=== PATIENT | male | born 1995 | race Caucasian/White ===

== ENCOUNTER 2021-12-22 14:15 | Emergency (ER) | payer SELFPAY ==
[~2021-12-22] VITALS: Ht 175.3 cm; Wt 100.0 kg
[2021-12-22 14:41] VITALS: BP 140/78
[2021-12-22] MEDS ORDERED: BO1 TP (15:32)
[2021-12-22] MEDS ORDERED: CLIN300C12 MT (15:32)
== END 2021-12-22 15:37 | disposition home or self-care (01) ==
LOC: ER 14:15
DX: L03.116 Cellulitis of left lower limb (principal)
CPT/HCPCS: 99283

== ENCOUNTER 2022-05-24 11:51 | Inpatient (IN) | payer SELFPAY ==
[~2022-05-24] VITALS: Ht 175.3 cm; Wt 109.8 kg
[~2022-05-24 11:51] MED LIST: BO1 TP; CLIN-194 MT
[2022-05-24] MEDS ORDERED: MORPHINE SULFATE 4 MG/ML CPJ (NOT FOR IM USE) IV STA (12:28)
[2022-05-24] MEDS ORDERED: ONDANSETRON HCL 4MG/2ML INJ IV STA (12:28)
[2022-05-24] MEDS ORDERED: SODIUM CHLORIDE 0.9% 1000ML BAG (SEPSIS BOLUS) IV ONE (12:30)
[2022-05-24] MEDS ORDERED: ACETAMINOPHEN 500MG TABLET PO ONE (12:30)
[2022-05-24] MEDS ORDERED: VANCOMYCIN 1G PREMIX 200 ML IV ONE (12:30)
[2022-05-24] MEDS ORDERED: CEFTRIAXONE 1 G PREMIX 50 ML IV ONE (12:30)
[2022-05-24 13:34] LABS: HEMATOCRIT. 47.6 % (42.0-52.0); HEMOGLOBIN. 16.5 g/dL (14.0-18.0); MEAN CORPUSCULAR HEMOGLOBIN 32.1 pg (28.0-32.0); MEAN CORPUSCULAR VOLUME 92.6 fL (80.0-94.0); MEAN PLATELET VOLUME 9.3 fl (7.4-10.4); PLATELET 240 x1000/uL (130-400); RED BLOOD CELL COUNT 5.13 mill/uL (4.7-6.1); RED CELL DISTRIBUTION WIDTH 12.3 % (11.6-14.6)
[2022-05-24 13:43] LABS: CHLORIDE 101 mEq/L (98-107)
[2022-05-24 13:54] LABS: PROTHROMBIN TIME 10.3 sec (9.6-11.0)
[2022-05-24 13:59] LABS: PLATELET ESTIMATE NORMAL
[2022-05-24] MEDS ORDERED: MIDAZOLAM HCL 2 MG/2 ML VIAL IV ONE (14:00)
[2022-05-24] MEDS ORDERED: VANCOMYCIN 1,000 MG in DEXT 5% WATER 250 ML IV NR (14:15)
[2022-05-24] MEDS ORDERED: MIDAZOLAM HCL 2 MG/2 ML VIAL IV NR (14:15)
[2022-05-24] MEDS ORDERED: VANCOMYCIN 1GM PMX (XELLIA) 200 ML IV NR (17:32)
[2022-05-24 17:55] LABS: *AMPHETAMINES SCREEN URINE PRESUMTIVE POSITIVE (NEGATIVE); *BARBITURATES SCREEN URINE NEGATIVE (NEGATIVE); *BENZODIAZEPINES SCREEN URINE PRESUMTIVE POSITIVE (NEGATIVE); *COCAINE SCREEN URINE NEGATIVE (NEGATIVE); CANNABINOID URINE SCREEN PRESUMTIVE POSITIVE (NEGATIVE); METHADONE URINE SCREEN NEGATIVE (NEGATIVE); OPIATES URINE SCREEN PRESUMTIVE POSITIVE (NEGATIVE); PHENCYCLIDINE URINE SCREEN NEGATIVE (NEGATIVE)
[2022-05-24] MEDS ORDERED: ACETAMINOPHEN 325MG TABLET PO ONE (22:45)
[2022-05-25] MEDS ORDERED: GUAIFENESIN 200MG/10ML SUGAR FREE UDC PO PRN (09:30)
[2022-05-25] MEDS ORDERED: DOCUSATE SODIUM 100MG CAPSULE PO PRN (09:30)
[2022-05-25] MEDS ORDERED: CLONIDINE 0.1MG TABLET PO PRN (09:30)
[2022-05-25] MEDS ORDERED: ACETAMINOPHEN 325MG TABLET PO PRN (09:30)
[2022-05-25] MEDS ORDERED: MAGNESIUM/ALUMINUM HYDROXIDE/SIMETHICONE 30ML UDC PO PRN (09:30)
[2022-05-25] MEDS ORDERED: ENOXAPARIN 40MG/0.4ML SYR SUBCUT SCH (09:30)
[2022-05-25] MEDS ORDERED: DIPHENHYDRAMINE 50MG/ML VIAL IV PRN (09:30)
[2022-05-25] MEDS ORDERED: IPRATROPIUM/ALBUTEROL 0.5-3(2.5)MG/3ML NEB HHN PRN (09:30)
[2022-05-25] MEDS ORDERED: ONDANSETRON HCL 4MG/2ML INJ IV PRN (09:30)
[2022-05-25] MEDS ORDERED: HYDRALAZINE 20MG/ML VIAL IV PRN (09:30)
[2022-05-25] MEDS ORDERED: HYDRALAZINE 10 MG in SODIUM CHLORIDE 0.9% 49.5 ML IV PRN (09:45)
[2022-05-25] MEDS ORDERED: NALOXONE HCL 0.4MG/ML VIAL IV PRN (09:45)
[2022-05-25] MEDS ORDERED: PIPERACILLIN/TAZ 3.375G PREMIX 50 ML IV SCH (10:00)
[2022-05-25] MEDS: ENOXAPARIN 30MG/0.3ML SYR SUBCUT SCH ×2 (10:26→20:55)
[2022-05-25] MEDS: SODIUM CHLORIDE 0.45% 1,000 ML IV SCH (10:28)
[2022-05-25] MEDS: HYDROCODONE/ACETAMINOPHEN 5/325MG TABLET PO PRN (10:32)
[2022-05-25] MEDS: PIPERACILLIN/TAZOBACTAM 3.375G in DEXT 5% WATER 50ML IV SCH ×3 (11:01→20:54)
[2022-05-25] MEDS: SODIUM CHLORIDE 0.9% INJ 3ML FLUSH IVF SCH ×2 (14:20→22:00)
[2022-05-25 18:38] VITALS: BP 147/85
[2022-05-25 20:31] VITALS: BP 145/70
[2022-05-26 01:01] VITALS: BP 143/89
[2022-05-26] MEDS: HYDROCODONE/ACETAMINOPHEN 5/325MG TABLET PO PRN ×2 (02:33→23:15)
[2022-05-26 04:49] VITALS: BP 142/70
[2022-05-26] MEDS: SODIUM CHLORIDE 0.45% 1,000 ML IV SCH ×2 (05:00→20:05)
[2022-05-26] MEDS: PIPERACILLIN/TAZOBACTAM 3.375G in DEXT 5% WATER 50ML IV SCH ×2 (05:55→14:05)
[2022-05-26] MEDS: SODIUM CHLORIDE 0.9% INJ 3ML FLUSH IVF SCH ×3 (05:56→22:00)
[2022-05-26 08:00] VITALS: BP 153/75
[2022-05-26 08:19] LABS: BASOPHILS % 0.2 % (0.0-2.0); EOSINOPHILS % 0.1 % (0.0-5.0); HEMATOCRIT. 48.1 % (42.0-52.0); HEMOGLOBIN. 16.6 g/dL (14.0-18.0); LYMPHOCYTES % 8.7 % (20.0-50.0); MEAN CORPUSCULAR HEMOGLOBIN 32.2 pg (28.0-32.0); MEAN PLATELET VOLUME 9.7 fl (7.4-10.4); MONOCYTES % 7.8 % (2.0-8.0); NEUTROPHILS % 83.2 % (40.0-76.0); PLATELET 225 x1000/uL (130-400); RED BLOOD CELL COUNT 5.17 mill/uL (4.7-6.1); RED CELL DISTRIBUTION WIDTH 12.4 % (11.6-14.6)
[2022-05-26 08:35] LABS: CHLORIDE 102 mEq/L (98-107)
[2022-05-26] MEDS: ENOXAPARIN 30MG/0.3ML SYR SUBCUT SCH ×2 (09:00→23:01)
[2022-05-26 12:00] VITALS: BP 150/98
[2022-05-26 16:00] VITALS: BP 154/78
[2022-05-26] MEDS ORDERED: VANCOMYCIN 1500MG in DEXTROSE 5% WATER 250ML IV SCH (18:00)
[2022-05-26] MEDS: CEFTRIAXONE 2 G in DEXTROSE 5% WATER 50 ML IV SCH (18:06)
[2022-05-26] MEDS: CLINDAMYCIN 600 MG PREMIX 50 ML IV SCH ×2 (19:01→23:01)
[2022-05-26 20:00] VITALS: BP 151/75
[2022-05-27] VITALS: BP 115/65
[2022-05-27] MEDS: VANCOMYCIN 1250MG in DEXTROSE 5% WATER 250ML IV SCH ×3 (02:00→13:39)
[2022-05-27 04:00] VITALS: BP 130/77
[2022-05-27] MEDS: CLINDAMYCIN 600 MG PREMIX 50 ML IV SCH ×2 (06:00→12:53)
[2022-05-27] MEDS: SODIUM CHLORIDE 0.9% INJ 3ML FLUSH IVF SCH ×2 (06:00→12:53)
[2022-05-27] MEDS: HYDROCODONE/ACETAMINOPHEN 5/325MG TABLET PO PRN (07:13)
[2022-05-27 08:00] VITALS: BP 126/73
[2022-05-27 08:08] LABS: BASOPHILS % 0.3 % (0.0-2.0); EOSINOPHILS % 0.4 % (0.0-5.0); HEMOGLOBIN. 15.8 g/dL (14.0-18.0); LYMPHOCYTES % 12.1 % (20.0-50.0); MEAN CORPUSCULAR HEMOGLOBIN 31.5 pg (28.0-32.0); MEAN CORPUSCULAR VOLUME 93.3 fL (80.0-94.0); MEAN PLATELET VOLUME 9.2 fl (7.4-10.4); MONOCYTES % 8.4 % (2.0-8.0); NEUTROPHILS % 78.8 % (40.0-76.0); PLATELET 256 x1000/uL (130-400); RED BLOOD CELL COUNT 5.03 mill/uL (4.7-6.1); RED CELL DISTRIBUTION WIDTH 12.3 % (11.6-14.6)
[2022-05-27 08:16] LABS: CHLORIDE 101 mEq/L (98-107)
[2022-05-27] MEDS: ENOXAPARIN 30MG/0.3ML SYR SUBCUT SCH (10:18)
[2022-05-27 12:00] VITALS: BP 118/73
[2022-05-27] MEDS: SODIUM CHLORIDE 0.45% 1,000 ML IV SCH (12:00)
[2022-05-27 16:00] VITALS: BP 129/71
[2022-05-27] MEDS: CEFTRIAXONE 2 G in DEXTROSE 5% WATER 50 ML IV SCH (17:15)
[2022-05-27] MEDS ORDERED: CLINDAMYCIN 600 MG in DEXTROSE 5% WATER 50 ML IV SCH (22:00)
== END 2022-05-27 18:17 | disposition home or self-care (01) | DRG 383 ==
LOC: ER 12:03 → MICUSO 05-25 02:41 → EDBEDREQ 05-25 02:56 → EDBEDREQDT 05-25 02:56 → EDBEDREQTM 05-25 02:56 → EDBEDREQSVC 05-25 02:57 → 6EST 05-25 09:38
PROVIDERS: ADMIT Internal Medicine; ATTEND Internal Medicine
DX: L03.113 Cellulitis of right upper limb (principal); R65.10 Systemic inflammatory response syndrome (SIRS) of non-infectious origin without acute organ dysfunction; F11.90 Opioid use, unspecified, uncomplicated; F17.200 Nicotine dependence, unspecified, uncomplicated; Z20.822 Contact with and (suspected) exposure to COVID-19; M65.88 Other synovitis and tenosynovitis, other site; W57.XXXA Bitten or stung by nonvenomous insect and other nonvenomous arthropods, initial encounter; F12.90 Cannabis use, unspecified, uncomplicated; F15.90 Other stimulant use, unspecified, uncomplicated; Y93.89 Activity, other specified; Y92.89 Other specified places as the place of occurrence of the external cause; Y99.8 Other external cause status
CPT/HCPCS: 36415; 73130; 80048; 80053; 80305; 83605; 85025; 87426; 99285; C9803; J0696; J1650; J2250; J2270; J2405; J2543; J3370; J3490; J7030; J7060